=== PATIENT | male | born 1970 | race Caucasian/White ===

== ENCOUNTER 2020-09-13 23:49 | Observation (INO) ==
[2020-09-14] MEDS ORDERED: *HR* FentaNYL (PF) 100 MCG/2 ML VIAL IVP ONE (01:04)
[2020-09-14] MEDS ORDERED: Ketorolac 15 MG/ML VIAL IVP ONE (01:04)
[2020-09-14] MEDS ORDERED: Ondansetron 4 MG/2 ML VIAL IVP ONE (01:04)
[2020-09-14 02:14] LABS: Hematocrit 41.7 % (37.5-50.1); Hemoglobin 13.9 g/dL (12.9-16.9); Mean Corpuscular HGB Conc 33.3 g/dL (31.6-35.5); Mean Corpuscular Volume 90.1 fL (83.0-100.0); Mean Platelet Volume 11.1 fL (9.4-12.4); Platelet Count 189 K/mcL (140-400); Red Blood Count 4.63 M/mcL (4.19-5.50); Red Cell Distribution Width 12.3 % (11.5-14.5); White Blood Count 11.6 K/mcL (4.3-11.1)
[2020-09-14 02:39] LABS: Calcium 9.6 mg/dL (8.6-10.3); Potassium 4.9 mEq/L (3.5-5.1)
[2020-09-14] MEDS ORDERED: 0.9 % Sodium Chloride 1,000 ML IVC ONE (02:40)
[2020-09-14 03:34] LABS: Bacteria,Urine Few per hpf (None-Few); Bilirubin,Urine Negative (Negative); Blood,Urine Large (Negative); Clarity,Urine Clear (Clear); Color,Urine Light-Yellow (Yellow); Glucose,Urine (UA) Normal (Normal); Hyaline Casts,Urine Few per lpf (None Seen); Ketones,Urine Negative (Negative); Leukocyte Esterase,Urine Negative (Negative); Mucus,Urine Few per lpf (None-Few); Nitrite,Urine Negative (Negative); PH,Urine 5.5 pH Units (5.0-8.0); Protein,Urine 30 mg/dL (Neg-Trace); RBC,Urine 50-100 per hpf (0-3); Specific Gravity,Urine 1.027 (1.010-1.025); Squamous Epithelial Cell,Urine Few per hpf (None-Few); Urobilinogen,Urine Normal (Normal)
[2020-09-14] MEDS ORDERED: *HR* Promethazine 25 MG/ML VIAL IM PRN ×2 (04:35→10:03)
[2020-09-14] MEDS ORDERED: Naloxone 0.4 MG/ML INJ IVP PRN ×2 (04:35→10:03)
[2020-09-14] MEDS ORDERED: Ketorolac 15 MG/ML VIAL IVP PRN (04:35)
[2020-09-14] MEDS ORDERED: Ondansetron 4 MG/2 ML VIAL IVP PRN ×2 (04:35→10:03)
[2020-09-14] MEDS ORDERED: 0.9 % Sodium Chloride 1,000 ML IVC SCH ×2 (04:45→09:15)
[2020-09-14] MEDS ORDERED: *HR* HYDROmorphone (PF) 1 MG/ML SYRINGE IVP ONE (04:57)
[2020-09-14] MEDS ORDERED: Lidocaine -MPF 2% 2 ML VIAL ONE (08:08)
[2020-09-14] MEDS ORDERED: Ondansetron 4 MG/2 ML VIAL ONE (08:08)
[2020-09-14] MEDS ORDERED: *HR* FentaNYL (PF) 100 MCG/2 ML VIAL ONE (08:08)
[2020-09-14] MEDS ORDERED: *HR* Midazolam HCl 2 MG/2 ML VIAL ONE (08:08)
[2020-09-14] MEDS ORDERED: *HR* Propofol 200 MG/20 ML VIAL IVP ONE (08:08)
[2020-09-14] MEDS ORDERED: Isovue-300 50ML VIAL ONE (08:18)
[2020-09-14] MEDS ORDERED: *HR* HYDROmorphone PF 0.5 MG/0.5 ML SYRINGE IVP PRN (08:36)
[2020-09-14] MEDS: 0.9 % Sodium Chloride 1,000 ML IVC SCH ×2 (10:25→19:51)
[2020-09-14] MEDS ORDERED: cefTRIAXone 1,000 MG in Water for inj. (sterile) 10 ML IVP SCH (13:00)
[2020-09-15 05:29] LABS: Basophils % 0.1 %; Eosinophils % 0.2 %; Hematocrit 35.3 % (37.5-50.1); Immature Granulocytes % 0.4 % (0-4); Lymphocytes # 1.1 K/mcL (0.6-4.6); Lymphocytes % 9.7 %; Mean Corpuscular HGB Conc 33.7 g/dL (31.6-35.5); Mean Corpuscular Volume 88.9 fL (83.0-100.0); Monocytes % 9.1 %; Neutrophils # 9.2 K/mcL (1.6-8.9); Platelet Count 166 K/mcL (140-400); Red Blood Count 3.97 M/mcL (4.19-5.50); Red Cell Distribution Width 12.2 % (11.5-14.5); Segmented Neutrophils % 80.5 %; White Blood Count 11.4 K/mcL (4.3-11.1)
[2020-09-15 05:31] LABS: Hemoglobin 11.9 g/dL (12.9-16.9)
[2020-09-15 05:47] LABS: BUN/Creatinine Ratio 15 (6-26); Blood Urea Nitrogen 18 mg/dL (6-20); Calcium 8.4 mg/dL (8.6-10.3); Carbon Dioxide 24 mEq/L (23-29); Chloride 106 mEq/L (98-107); Glucose 135 mg/dL (70-105); Magnesium 1.8 mg/dL (1.6-2.6); Osmolality,Calculated 284 (280-300); Potassium 4.5 mEq/L (3.5-5.1); Sodium 135 mEq/L (136-145); eGFR For African Americans > 60 (> 60); eGFR For Non-African Americans > 60 (> 60)
[2020-09-15] MEDS: 0.9 % Sodium Chloride 1,000 ML IVC SCH (06:00)
[2020-09-15 07:38] VITALS: BP 105/62
[2020-09-15] MEDS ORDERED: lisinopriL 5 MG TABLET PO SCH (09:00)
[2020-09-15] MEDS ORDERED: Aspirin Enteric Coated 81 MG Tablet PO SCH (09:00)
[2020-09-15] MEDS ORDERED: Famotidine 20 MG TABLET PO SCH (09:00)
[2020-09-15] MEDS ORDERED: Metoprolol XL (24 HR) Succ 25 MG TAB.ER.24H PO SCH (09:00)
== END 2020-09-15 11:08 | disposition home or self-care (01) ==
LOC: EMEROOARM 23:49 → 3BNU 23:49 → SUATTDRO 09-14 04:50 → 3BNU 09-14 06:20
PROVIDERS: ADMIT Internal Medicine; ATTEND Internal Medicine